=== PATIENT | female | born 1950 | race Caucasian/White ===

== ENCOUNTER → 2017-02-07 | Outpatient (CLI) | payer OTHER ==
[~2017-02-07] MED LIST: ASPCH81X PO; BUPR8MIS SL; BUSP-8 PO; CLON0.5T3 PO
--- NOTE | 2017-02-08 06:13 | PAP/PSG TECHNICIAN REPORT ---
[facility] Railroad Auditor Polysomnogram Report Study name: None Report date: 02/08/2017 Study date: 02/07/2017 Referring Physician: Arias Woods M.D. Name: POLLO ACEVEDO Interpreting Physician: Earnest Woods M.D. Date of : 1950 Railroad Auditor: JD Watters. Sex: Female Age: 67 StudyType: PSG Weight: 158 lbs 14 inches Height: 67 years, Height 5' 5" Neck Circum: BMI: 26.29 Medications: Duloxetine 30 mg, Melatonin 2.5 mg, Metrogel .75%, Zanaflex 4 mg, Suboxone 8-2 mg Patient History 67 yr. old female here for a possible split night sleep study. Patient was diagnosed with mild DUSTIN in 2008. Patients complains of loud snoring, witnessed apneas, morning headaches, and dry mouth. Patients [place] Sleepiness Scale Score is 7/24. Parameters Monitored NPSG: E1-M2, E2-M1, Fp1-M2, Fp2-M1, F3-M2, F4-M2, F4-M1, C3-M2, C4-M2, C4-M1, O1-M2, O2-M2, O2-M1, T3-M2, T4-M1, P3-M2, P4-M1, CHIN1, CHIN2, HR, EKG, Legs, PFLOW, SNOR, FLOW, CFLOW, Tidal Volume, THOR, ABDO, SpO2, PLTH, CPRESS, ETCO2 Wave, ETCO2, pH Sleep Architecture Sleep Stages Time at Lights Off 9:43:48 PM STAGES Time (min.) TST (%) Time at Lights On 6:03:48 AM Wake 104.5 -- Total Recording Time (TRT) 500.00 min. N1 40.5 10 Total Sleep Period (TSP) 474.0 min. N2 224.5 57 Total Sleep Time (TST) 395.5min. N3 27.5 7 Awake Time 104.5 min. REM 103.0 26 Wake after Sleep Onset 78.5 min. Sleep Efficiency (SE) 79 % Sleep Onset Latency (LAVINIA) 26.0 min. Number of Stage 1 Shifts None Awakenings 20 Stage Changes 87 Number of REM periods 9 REM 103.0 26 REM Latency 51.0 min. NREM 292.5 74 Body Position Analysis Supine Right Left Side Prone Vertical Total Sleep Time (min.) 207.8 55.0 180.5 235.51 0.0 0.0 Total Sleep Time (%) 40% 14% 46% 60 0% N/A% Total Sleep Time REM (min.) 63.0 11.0 29.0 None 0.0 0.0 Total Sleep Time NREM (min.) 97.0 44.0 151.5 None 0.0 0.0 Intermittent Wake (min.) 47.8 25.6 31.1 None 0.0 0.0 Total Sleep Period (%) 40% None None None None None Arousals Myoclonus (PLM) * Events Count Index Events Count Index Spontaneous 1 0 Events Awake (PLMW) 60 34.4 Respiratory 12 2.4 Events Asleep w/ Arousal (PLMA) 8 1.2 PLM 8 1 Events Asleep w/o Arousal (PLMS) 63 9.6 Snoring 16 2 Total Asleep 71 10.8 Total 36 5 Total 131 16 Respiratory Analysis * CA OA MA CH H RERA Total Count 0 39 2 0 48 0 89 Index 0.0 5.9 0.3 0 7.3 0 13.5 Mean Duration 0.0 20.5 15.7 0.00 22.5 0.0 21.5 Longest Duration 0.0 35.9 20.5 0.00 20.5 0.0 43.5 Respiratory Event Summary Total Supine ~Supine Right Left Prone REM NREM Apneas Count 41 23 18 5 13 N/A 23 18 Index 6.2 9 5 5.5 4.3 N/A 13 4 Hypopneas (4% Desat) Count 48 25 23 2 21 N/A 34 14 Index 7.3 9.4 6 2.2 7.0 N/A 19.8 2.9 Apneas & All Hypopneas Count 89 48 41 7 34 N/A 57 32 Index 13.5 18 10 8 11 N/A 33.2 6.6 Respiratory Events (Associate Attorney+All Hyp+RERA) Count 89 48 41 7 34 N/A 57 32 Index 13.5 18 10 7.6 11.3 N/A 33.2 6.6 Respiratory Related Arousal Count 12 48 6 1 5 N/A 6 10 Index 2.4 4 2 1 2 N/A 3 2 Snoring Analysis Supine Right Left Prone REM NREM Total Snore duration 89.1 min Snores count 1,138 712 1,539 N/A 870 2,519 3,389 Snore mean duration 1.6 Sec Snores index 427 777 512 N/A 506.8 516.7 514.1 TST with snoring (%) 22.5% Desaturation Event Summary: Minimum %SpO2 Event Count Mean/Min/Max Duration(sec.) Desaturation Index % Time In Bed > 90 76 30.4 / 5.8 / 60.0 10.1 91.7 86 - 90 3 13.4 / 6.8 / 26.5 4.4 8.2 81 - 85 0 N/A 0.0 0.1 76 - 80 0 N/A 0.0 0.0 71 - 75 0 N/A 0.0 0.0 66 - 70 0 N/A 0.0 0.0 61 - 65 0 N/A 0.0 0.0 56 - 60 0 N/A 0.0 0.0 51 - 55 0 N/A 0.0 0.0 < 50 0 N/A 0.0 0.0 Total REM NREM Awake <50% 0.0 min. 0.0 min. 0.0 min. 0.0 min. 51 - 60% 0.0 min. 0.0 min. 0.0 min. 0.0 min. 61 - 70% 0.0 min. 0.0 min. 0.0 min. 0.0 min. 71 - 80% 0.0 min. 0.0 min. 0.0 min. 0.0 min. 81 - 90% 41.0 min. 17.6 min. 21.3 min. 2.1 min. 91 - 100% 453.2 min. 85.4 min. 271.2 min. 96.6 min. Average 92 92 92 93 Minimum SpO2 84 84 87 86 Desaturation Event Index 9.2 27.4 5.1 2.9 # Desat. Events below 89% 22 13 6 3 Time(%) with Saturation below 89% 0.8 0.6 0.1 0.1 Time(min.) with Saturation below 89% 4.2 3.1 0.6 0.5 Time (mins) REM (mins) NREM (mins) % of TST SpO2 Below 90% 63 44 N19 3.1 SpO2 Below 88% 10 0 0 0 Heart Rate Analysis Min (bpm) Max (bpm) Average (bpm) Awake 71 106 88 NREM 69 99 82 REM 73 100 83 Overall 69 100 83 Supplemental O2 Values Minimum O2 level: None Value Start Time End Time Railroad Auditor Comments MS. Acevedo slept in the right, left, and supine positions. No cardiac arrhythmia. PLMs noted. No bruxism noted. Snoring was noted and scored as a 4 on a scale of 0 through 5. (0=no snoring, 5=snoring loud enough to be heard through a closed door or down the castellanos way) MS. Acveedo awoke to use the restroom once during the night. MS. Acevedo stated, I slept more last night. The final report will be interpreted and signed by a sleep physician. The completed physician report will then be placed in the patient medical record. Therapy (cm H2O) 0 TIB (min.) 500.0 TST (min.) 395.5 Sleep Onset (min.) 26.0 REM Onset From Sleep (min.) 51.0 Sleep Efficiency % 79 Wakefulness (%) 21 Wakefulness (min.) 104.5 NREM 1 (%) 10 NREM 1 (min.) 40.5 NREM 2 (%) 57 NREM 2 (min.) 224.5 NREM 3 (%) 7 NREM 3 (min.) 27.5 REM (%) 26 REM (min.) 103.0 # Arousals 36 Arousal Index 5 # Snore 3,389 Snore Index 514.1 AHI 13.5 AHI Supine 18 AHI Non-Supine 10 NREM AHI 6.6 REM AHI 33.2 RDI 13.5 # Obstructive Apnea 39 # Central Apnea 0 # Mixed Apnea 2 # Hypopneas 48 RERAs 0 Total Respiratory Events 99 Time Below SpO2 89% (min.) 3.7 Mean NREM SpO2 (%) 92 Mean REM SpO2 (%) 92 Mean Sleep SpO2 (%) 92 Min NREM SpO2 (%) 87 Min REM SpO2 (%) 84 Position Supine (min.) 207.8 Position Non-supine (min.) 235.5 LM Index Sleep 10.8 LM Index NREM 9.4 LM Index REM 14.6 Mean Heart Rate (bpm) 83 Min Heart Rate (bpm) 69
--- NOTE | 2017-02-16 11:54 | POLYSOMNOGRAPH REPORT ---
REFERRING PERSON: Dr. Brent Woods. WEB FEEDER: Farideh Tony. Ms. Acevedo is a 67-year-old female sent for a possible split night sleep study. She was diagnosed with mild obstructive sleep apnea in 2008. She is not currently treated. She complains of loud snoring, witnessed apneas, morning headaches and dry mouth. Her [place] sleepiness scale score on the evening of this study is 7. BMI is 26.29. Following the technical and digital specifications of the [place] [employer] (AASM) a standard diagnostic polysomnogram was performed monitoring EEG, EOG, EMG (chin and leg deviations), oxygen saturation, body position, digital video, respiratory effort and airflow. The sleep Stage and event scoring was based on the AASM Manual for the Scoring of Sleep and Associated Events 2007 edition. Apneas are defined as a drop in the peak thermal sensor excursion by >90% of baseline for at least 10 seconds. Hypopneas were scored using the 4% oxygen desaturation rule (4A-[employer]) and a decrease in the nasal pressure excursions by >30% of baseline for at least 10 seconds. Respiratory effort-related arousal (RERA's) is defined as a sequence of breaths lasting at least 10 seconds characterized by increasing respiratory effort or flattening of the nasal pressure waveform leading to an arousal from sleep when the sequence of breaths does not meet criteria for an apnea or hypopnea. Apnea Hypopnea index (AHI) is defined as the number of apneas and hypopneas occurring in an hour of sleep. Respiratory disturbance index (RDI) is defined as the number of apneas, hypopneas, and RERA's occurring in an hour of sleep. Ms. Acevedo's total sleep period time was 474 minutes. Total sleep time was 395.5 minutes. Sleep efficiency was 79%. Latency to sleep onset was 26 minutes with wake after sleep onset of 78.5 minutes. Total non-REM sleep time was 292.5 minutes. She spent 10% of that time in N1 sleep, 57% in N2 sleep and 7% in N3 sleep. REM latency was 51 minutes. Total REM sleep time was 103 minutes or 26% of total sleep time. There were 36 cortical arousals from sleep. 16 of these arousals were due to snoring, 8 due to periodic limb movements of sleep, 12 were due to respiratory events, and 1 was spontaneous. There were 71 periodic limb movements noted on this test. Limb movement index was 10.8 and limb movement with arousal index was 1.2. There were no central, 39 obstructive and 2 mixed apnea on this test. Additionally, there were 48 hypopnea. Apnea-hypopnea index was 13.5 consistent with mild sleep apnea. The supine AHI was 18 and REM AHI was 33.2. There were 3389 snoring events recorded. Total sleep time with snoring was 22.5%. Mean saturation was normal at 92% with desaturations to 84%. Saturations were less than 89 for 4.2 minutes of recorded time. There was no cardiac ectopy noted on this study. Heart rates ranged from a low of 69 beats per minute to a high of 100 beats per minute during sleep. IMPRESSION AND PLAN: 1. A 67-year-old female with evidence of mild sleep apnea, moderate in supine sleep and severe in REM sleep without nocturnal hypoxemia. This patient would likely benefit from positive airway pressure therapy. She should return to sleep lab for a full night titration and then based on those results be started on equipment at home. A download from her machine can be reviewed in 1 month both to check compliance as well as AHI and further pressure adjustments can occur at that time. 2. Alternatively, this patient could be placed on an auto titrating CPAP with pressures of 5-15 cm. After 1 month of therapy, optimal pressure can be determined and she can be placed on that. 3. Should this patient be unwilling or unable to tolerate CPAP therapy, she should be referred to ear, nose and throat or oral surgery/dental medicine (if appropriate) to discuss alternative treatments for sleep disordered breathing. DANICA
== END | disposition home or self-care (01) ==
LOC: C.NEUR 21:00
PROVIDERS: ATTEND Family Medicine
DX: G47.33 Obstructive sleep apnea (adult) (pediatric) (principal)